=== PATIENT | female | born 1990 ===

== ENCOUNTER 2017-05-01 18:16 | Emergency (ER) | payer BC, OTHER ==
[2017-05-01 18:50] VITALS: BMI 25.0
[2017-05-01 18:52] VITALS: TEMP 98.9
[2017-05-01] MEDS ORDERED: Lidocaine 1% Inj (20ml) ONE (19:55)
[2017-05-01] MEDS ORDERED: Tetanus/Diphtheria Toxoids 0.5 ml Syringe IM ONE (19:56)
--- NOTE | 2017-05-01 20:39 | C.PDOC ---
History Of Present Illness 27 year old female presents to the ER with a complaint of a laceration to the left hand after she cut herself with a knife while slicing an avocado. Denies weakness or numbness. Last tetanus vaccination is unknown. Time Seen by Provider: 05/01/17 19:32 Chief Complaint (Nursing): Abnormal Skin Integrity History Per: Patient History/Exam Limitations: no limitations Onset/Duration Of Symptoms: Hrs Current Symptoms Are (Timing): Still Present Location Of Injury: Left: Hand Quality Of Symptoms: Other (Laceration) Recent travel outside of the [place]: No Past Medical History Reviewed: Historical Data, Nursing Documentation, Vital Signs Vital Signs: Last Vital Signs Temp 98.9 F 05/01/17 18:50 Pulse 89 05/01/17 20:55 Resp 16 05/01/17 20:55 BP 119/77 05/01/17 20:55 Pulse Ox 100 05/01/17 20:55 Family History: States: Unknown Family Hx - Social History Hx Alcohol Use: No Hx Substance Use: No - Immunization History Hx Tetanus Toxoid Vaccination: No Hx Influenza Vaccination: No Hx Pneumococcal Vaccination: No Review Of Systems Musculoskeletal: Positive for: Hand Pain Skin: Positive for: Other (Laceration) Neurological: Negative for: Weakness, Numbness Physical Exam - Physical Exam Appears: Non-toxic, No Acute Distress Skin: Warm, Dry Head: Atraumatic, Normacephalic Eye(s): bilateral: Normal Inspection Extremity: Normal ROM (x4), Capillary Refill (<2 seconds), Other (4cm laceration to the webbed space between the 1st and 2nd digits of the left hand. No tendon injury) Pulses: Left Radial: Normal, Right Radial: Normal Neurological/Psych: Oriented x3, Normal Speech, Normal Motor, Normal Sensation ED Course And Treatment O2 Sat by Pulse Oximetry: 99 (Room air) Pulse Ox Interpretation: Normal Progress Note: Patient tolerated laceration repair without any difficulty, dressing applied and tetanus vaccination administered. Patient given proper wound care instructions and instructed to follow up with PMD or return to ER if symptoms worsen. Laceration - Laceration Repair Webbed space between 1st and 2nd digit of left hand Wound Length (In cm): 4 Description Of Wound: Linear Wound Cleansed With: Betadine, Sterile Saline Anesthesia: Lidocaine 1% Wound Examination: Irrigated With Saline, No FB With Wound Exploration, No Tendon Injury With Wound Exploration Wound Closure: Suture (x5) Suture Technique And Material Used: Prolene (4-0) Disposition - Disposition Referrals: [facility] [Outside] Disposition: HOME/ ROUTINE Disposition Time: 20:35 Condition: STABLE Additional Instructions: Please follow up with PMD in 2 days for wound check Follow wound care instructions Suture removal in 10 days Return to ER if worse Instructions: Laceration (ED) Forms: [employer] ([employer]) - Clinical Impression Clinical Impression: Hand laceration - 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 - Scribe Statement The provider has reviewed the documentation as recorded by the Scribe Dante Siddiqui All medical record entries made by the Scribe were at my direction and personally dictated by me. I have reviewed the chart and agree that the record accurately reflects my personal performance of the history, physical exam, medical decision making, and the department course for this patient. I have also personally directed, reviewed, and agree with the discharge instructions and disposition.
[2017-05-01 20:57] VITALS: BP 119/77; PULSE 89; RESP 16
[2017-05-01 22:04] VITALS: O2SAT 99
== END 2017-05-01 20:57 | disposition home or self-care (01) ==
LOC: C.ER 18:16
DX: S61.412A Laceration without foreign body of left hand, initial encounter (principal); W26.0XXA Contact with knife, initial encounter; Z23 Encounter for immunization